=== PATIENT | male | born 1960 | race Caucasian/White ===

== ENCOUNTER 2017-01-28 05:11 | Inpatient (IN) | payer OTHER ==
[2017-01-22 10:43] LABS: BASOPHILS % (AUTO) 0.4 % (0.0-2.0); EOSINOPHILS % (AUTO) 1.4 % (1.0-6.0); HEMATOCRIT 48.6 % (41-53); HEMOGLOBIN 16.6 g/dL (13.5-17.5); LYMPHOCYTES # (AUTO) 2.5 K/uL (1.0-4.8); LYMPHOCYTES % (AUTO) 28.9 % (22.0-44.0); MEAN CORPUSCULAR HEMOGLOBIN 29.6 pg (26.0-34.0); MEAN CORPUSCULAR HGB CONC 34.2 G/dL (31.0-37.0); MEAN CORPUSCULAR VOLUME 87 fL (80-100); MONOCYTES # (AUTO) 0.8 K/uL (0.1-1.0); MONOCYTES % (AUTO) 9.6 % (2.0-9.0); NEUTROPHILS # (AUTO) 5.3 K/uL (1.8-7.7); NEUTROPHILS % (AUTO) 59.7 % (40.0-70.0); PLATELET COUNT (AUTO) 253 K/uL (150-450); RED BLOOD CELL COUNT(AUTO) 5.61 MIL/uL (4.50-5.90); RED CELL DISTRIBUTION WIDTH 13.7 % (11.5-14.5); WHITE BLOOD COUNT (AUTO) 8.8 K/uL (4.5-11.0)
[2017-01-22 10:51] LABS: ANION GAP 8 mmol/L (8-16); CALCIUM, TOTAL 9.1 mg/dL (8.8-10.5); CARBON DIOXIDE 28 mmol/L (22-29); CHLORIDE 103 mmol/L (98-107); CREATININE 1.05 mg/dL (0.60-1.30); GLOMERULAR FILTR. RATE CALC > 60 mL/min (>60); POTASSIUM 4.4 mmol/L (3.5-5.1); SODIUM SERUM 139 mmol/L (136-145); UREA NITROGEN, BLOOD 13 mg/dL (7-18)
[2017-01-22 10:56] LABS: PROTHROMBIN TIME 10.1 SEC (9.4-11.6)
[2017-01-22 10:58] LABS: ALANINE AMINOTRANSFERASE 30 U/L (12-78); ALBUMIN 4.2 g/dL (3.4-5.0); ASPARTATE AMINOTRANSFERASE 12 U/L (15-37); BILIRUBIN,TOTAL 0.7 mg/dL (0.1-1.0); TOTAL PROTEIN, SERUM 7.8 g/dL (6.4-8.2)
[~2017-01-28] VITALS: Ht 177.8 cm; Wt 101.8 kg
[~2017-01-28 05:11] MED LIST: CeFAZolin 2 GM/DEXTROSE 50 ML IV ONE; RINGERS SOLUTION,LACTATED 1,000 ML IV ONE; TRAM50TA4 PO
[2017-01-28] MEDS ORDERED: SODIUM CHLORIDE 0.9% 0 ML ONE (05:28)
[2017-01-28] MEDS ORDERED: RINGERS SOLUTION,LACTATED 1,000 ML IV ONE (05:28)
[2017-01-28] MEDS ORDERED: 0.9% SODIUM CHLORIDE 10 ML SYRINGE IVP ONE (05:37)
[2017-01-28] MEDS ORDERED: ACETAMINOPHEN 1000 MG/ISO-OSM 100 ML IV ONE (05:45)
[2017-01-28] MEDS ORDERED: BUPIVACAINE LIPOSOME/PF 1.3%-13.3MG/ML SUSPENSION 20 ML VIAL INJ ONE (06:00)
[2017-01-28] MEDS ORDERED: CeFAZolin 2 GM/DEXTROSE 50 ML IV ONE (06:00)
[2017-01-28] MEDS ORDERED: BUPIVACAINE HCL/PF 0.5% 30 ML VIAL ONE (07:05)
[2017-01-28] MEDS ORDERED: FentaNYL CITRATE-PF 100 MCG/2 ML VIAL IVP PRN (07:30)
[2017-01-28] MEDS ORDERED: MEPERIDINE-PF 25 MG/ML SYRINGE IVP PRN (07:30)
[2017-01-28] MEDS ORDERED: DiphenhydrAMINE HCL 50 MG/ML VIAL IVP PRN (07:30)
[2017-01-28] MEDS: ACETAMINOPHEN 1000 MG/ISO-OSM 100 ML IV SCH ×3 (07:30→19:50)
[2017-01-28] MEDS ORDERED: ZOLPIDEM TARTRATE 10 MG TABLET PO PRN (07:30)
[2017-01-28] MEDS ORDERED: MAG HYDROX/AL HYDROX/SIMETH 30 ML SUSP UDCUP PO PRN (07:30)
[2017-01-28] MEDS ORDERED: BENZOCAINE/MENTHOL LOZENGE [8 LOZENGES/PACKET] PO PRN (07:30)
[2017-01-28] MEDS ORDERED: DEXAMETHASONE SOD PHOS 4 MG/ML VIAL IVP PRN (07:30)
[2017-01-28] MEDS: OXYGEN THERAPY IH SCH ×2 (08:00→20:00)
[2017-01-28] MEDS ORDERED: MEPERIDINE-PF 25 MG/ML SYRINGE ONE (09:33)
[2017-01-28] MEDS ORDERED: HYDROmorphone 2 MG/ML SYRINGE ONE (09:34)
[2017-01-28] MEDS: HYDROmorphone 2 MG/ML SYRINGE IVP PRN ×7 (09:35→19:49)
[2017-01-28 10:15] VITALS: BP 156/91
[2017-01-28 12:10] VITALS: BP 154/102
[2017-01-28] MEDS: BISACODYL 5 MG EC TABLET PO SCH (14:58)
[2017-01-28] MEDS: DOCUSATE SODIUM 100 MG CAPSULE PO SCH ×2 (14:59→19:50)
[2017-01-28] MEDS: CYCLOBENZAPRINE HCL 10 MG TABLET PO SCH ×2 (15:01→21:08)
[2017-01-28 16:01] VITALS: BP 154/92
[2017-01-28] MEDS ORDERED: INFLUENZA VIRUS VACCINE QVS 2017-18 (3YR+)/PF 60 MCG/0.5 ML SYRINGE IM ONE (17:00)
[2017-01-28 17:50] VITALS: BP 155/99
[2017-01-28 19:37] VITALS: BP 146/90
[2017-01-29] VITALS (7 sets, daily range): BP systolic 119–152; BP diastolic 64–99
[2017-01-29] MEDS: ACETAMINOPHEN 1000 MG/ISO-OSM 100 ML IV SCH ×2 (01:20→08:30)
[2017-01-29] MEDS ORDERED: ROCURONIUM BROMIDE 10 MG/ML 5 ML VIAL IVP ONE (05:10)
[2017-01-29] MEDS ORDERED: METOCLOPRAMIDE HCL 5 MG/ML 2 ML VIAL IVP ONE (05:10)
[2017-01-29] MEDS ORDERED: GLYCOPYRROLATE 0.2 MG/ML VIAL IM ONE (05:10)
[2017-01-29] MEDS: HYDROmorphone 2 MG/ML SYRINGE IVP PRN ×3 (05:10→15:37)
[2017-01-29] MEDS ORDERED: LIDOCAINE HCL/PF 2% 5 ML VIAL IM ONE (05:10)
[2017-01-29] MEDS ORDERED: PROPOFOL 1% 20 ML VIAL IVP ONE (05:10)
[2017-01-29] MEDS ORDERED: NEOSTIGMINE METHYLSULFATE 1 MG/ML 10 ML VIAL IVP ONE (05:10)
[2017-01-29] MEDS ORDERED: ONDANSETRON HCL 4 MG/2 ML VIAL IVP ONE (05:10)
[2017-01-29] MEDS ORDERED: DEXAMETHASONE SOD PHOS 4 MG/ML VIAL IVP ONE (05:10)
[2017-01-29] MEDS ORDERED: FentaNYL CITRATE-PF 100 MCG/2 ML VIAL IVP ONE (05:15)
[2017-01-29] MEDS ORDERED: MIDAZOLAM HCL 2 MG/2 ML VIAL IVP ONE (05:15)
[2017-01-29] MEDS ORDERED: KETAMINE HCL 50 MG/ML 10 ML VIAL IVP ONE (05:15)
[2017-01-29] MEDS: BISACODYL 5 MG EC TABLET PO SCH (08:26)
[2017-01-29] MEDS: DOCUSATE SODIUM 100 MG CAPSULE PO SCH ×2 (08:26→20:33)
[2017-01-29] MEDS: CYCLOBENZAPRINE HCL 10 MG TABLET PO SCH ×3 (08:27→20:34)
[2017-01-29] MEDS ORDERED: OxyCODONE HCL/ACETAMINOPHEN 5-325 MG TABLET PO PRN (16:00)
[2017-01-29] MEDS: OxyCODONE HCL/ACETAMINOPHEN 5-325 MG TABLET PO PRN ×2 (17:35→22:00)
[2017-01-29] MEDS: OXYGEN THERAPY IH SCH (20:00)
[2017-01-30 00:18] VITALS: BP 104/61
[2017-01-30] MEDS: OxyCODONE HCL/ACETAMINOPHEN 5-325 MG TABLET PO PRN ×3 (03:44→19:51)
[2017-01-30 03:48] VITALS: BP 152/95
[2017-01-30 08:05] VITALS: BP 126/78
[2017-01-30] MEDS: DOCUSATE SODIUM 100 MG CAPSULE PO SCH ×2 (08:48→19:51)
[2017-01-30] MEDS: CYCLOBENZAPRINE HCL 10 MG TABLET PO SCH ×3 (08:48→21:20)
[2017-01-30] MEDS: BISACODYL 5 MG EC TABLET PO SCH (08:48)
[2017-01-30 11:51] VITALS: BP 146/94
[2017-01-30 17:10] VITALS: BP 150/93
[2017-01-30] MEDS: OXYGEN THERAPY IH SCH (20:00)
[2017-01-30 20:08] VITALS: BP 144/83
[2017-01-31 00:11] VITALS: BP 126/84
[2017-01-31 04:37] VITALS: BP 132/91
[2017-01-31] MEDS: BISACODYL 5 MG EC TABLET PO SCH (07:58)
[2017-01-31] MEDS: DOCUSATE SODIUM 100 MG CAPSULE PO SCH (07:58)
[2017-01-31] MEDS: CYCLOBENZAPRINE HCL 10 MG TABLET PO SCH (08:00)
[2017-01-31 08:05] VITALS: BP 128/83
== END 2017-01-31 10:11 | disposition home or self-care (01) | DRG 460 ==
LOC: 4E 05:11
PROVIDERS: ADMIT Orthopaedic Surgery Orthopaedic Surgery of the Spine; ATTEND Orthopaedic Surgery Orthopaedic Surgery of the Spine
PROC: 0SG30A0 Fusion of Lumbosacral Joint with Interbody Fusion Device, Anterior Approach, Anterior Column, Open Approach (ICD-10-PCS; 2017-01-28)
PROC: 0SG00A0 Fusion of Lumbar Vertebral Joint with Interbody Fusion Device, Anterior Approach, Anterior Column, Open Approach (ICD-10-PCS; principal; 2017-01-28 06:30)
DX: M51.36 Other intervertebral disc degeneration, lumbar region (principal); M51.37 Other intervertebral disc degeneration, lumbosacral region
CPT/HCPCS: 87081; 93005; 97161; 97165; 97530; C1713; C9290; G0238; J0131; J0690; J1100; J1170; J2175; J2250; J2405; J2704; J2765; J3010; J3490; J7120